=== PATIENT | male | born 1985 | race Asian ===

== ENCOUNTER 2024-04-12 22:04 | Emergency (ER) | payer OTHER ==
[~2024-04-12] VITALS: Ht 185.4 cm; Wt 79.3 kg
[2024-04-12 22:11] VITALS: TEMP 97.8
[2024-04-13] MEDS: ERYTHROMYCIN OPHTH OINT OU ONE (00:14)
[2024-04-13 00:34] VITALS: BP 123/81; O2SAT 99
[2024-04-13] MEDS ORDERED: ERYTOIN8 TOP (00:42)
== END 2024-04-13 00:46 | disposition home or self-care (01) ==
LOC: M ED 22:04
DX: H10.33 Unspecified acute conjunctivitis, bilateral (principal); Z79.2 Long term (current) use of antibiotics